=== PATIENT | male | born 1940 | race Caucasian/White ===

== ENCOUNTER → 2024-01-21 12:47 | Outpatient (REF) | payer OTHER, SELFPAY | LOC: DHCBC MAIN 12:47 | PROVIDERS: ATTENDING PHYSICIAN Internal Medicine; FAMILY PHYSICIAN Family Medicine | DX: Z01.810 Encounter for preprocedural cardiovascular examination (principal); R07.9 Chest pain, unspecified | CPT/HCPCS: 93306 ==

== ENCOUNTER → 2024-02-04 07:49 | Outpatient (REF) | payer OTHER, SELFPAY | LOC: DHCBC/DCA 07:49 | PROVIDERS: ATTENDING PHYSICIAN Internal Medicine; FAMILY PHYSICIAN Family Medicine | DX: Z01.810 Encounter for preprocedural cardiovascular examination (principal); R07.9 Chest pain, unspecified | CPT/HCPCS: 78452; 93017; A9500; J2785 ==

== ENCOUNTER 2024-03-21 16:44 | Inpatient (IN) | payer OTHER, SELFPAY ==
[2024-03-21] VITALS (8 sets, daily range): BP systolic 160–183; BP diastolic 79–100; BMI 28.0; BMI 26.2
[2024-03-21 12:07] LABS: % Basophils 0.6 % (0-2); % Eosinophils 1.1 % (0-6); % Immature Granulocytes 0.6 % (0-0.5); % Lymphocytes 9.2 % (20.5-51.1); % Monocytes 7.5 % (1.7-9.3); Absolute Basophils 0.1 10^3/uL (0-0.2); Absolute Eosinophils 0.1 10^3/uL (0-0.7); Absolute Immature Granulocytes 0.1 10^3/uL (0-0.05); Absolute Lymphocytes 0.8 10^3/uL (1.2-3.4); Absolute Monocytes 0.6 10^3/uL (0.1-0.6); Absolute Neutrophils 6.6 10^3/uL (1.4-6.5); Hematocrit 31.5 % (39.0-52.0); Hemoglobin 10.5 g/dL (13.0-18.0); Mean Corp Hgb Conc. 33.3 g/dL (33.0-37.0); Mean Corpuscular Hgb 28.6 pg (27.0-31.0); Mean Corpuscular Volume 85.8 fL (80.0-94.0); Mean Platelet Volume 9.3 fL (7.4-10.4); Nucleated Red Blood Cells % 0 % (-); Platelet Count 278 10^3/uL (130-400); Red Blood Cell Count 3.67 10^6/uL (4.70-6.10); Red Cell Dist. Width 13.9 % (11.5-14.5); White Blood Cell Count 8.1 10^3/uL (4.8-10.8)
[2024-03-21 12:27] LABS: ALT (SGPT) 25 U/L (0-50); AST (SGOT) 29 U/L (17-59); Albumin 3.8 g/dl (3.5-5.0); Alkaline Phosphatase 168 U/L (38-126); Blood Urea Nitrogen 22 mg/dl (9-20); Calcium 9.4 mg/dl (8.4-10.2); Carbon Dioxide 27 mmol/L (22-30); Chloride 104 mmol/L (98-107); Glucose 124 mg/dl (70-99); Sodium 140 mmol/L (135-145); Total Bilirubin 1.6 mg/dl (0.2-1.3); Total Protein 6.5 g/dl (6.3-8.2); eGFR 54.17
[2024-03-21 12:40] LABS: Troponin I 0.019 ng/ml
--- NOTE | 2024-03-21 14:15 | ED.GENMED ---
History of Present Illness
General
Chief Complaint: Chest Pain
Source: patient
Exam Limitations: none
Time Seen by Provider: 03/21/24 14:15
Travel History
Have you had any contact with someone who has COVID-19?: No
Do you have any symptoms of coronavirus? Fever > 100 degrees, chills, cough, shortness of breath, sore throat, loss of taste or smell, muscle aches, or headache?: No
History of Present Illness
History of Present Illness:
83-year-old female complaining of vague chest tightness relatively constant for 2 days. Also some shortness of breath with exertion over the last 2 to 3 days. Shortness of breath worse going up stairs but even going to the bathroom he has some
shortness of breath. Chest tightness has been relatively constant. No pleuritic pain fever cough or other symptoms. Patient does feel his leg swelling which is chronic may be slightly worse
Past History
Past History
ED Past Medical History: Arrthythmia, GERD, HTN, Hypercholesterolemia and NIDDM
ED Past Surgical History: Appendectomy
Social History
Tobacco: Non-smoker
Alcohol: None
Drug: None
Personal:
Living: alone
Employment: Retired
Family History
Family History: Early CAD
Review of Systems
Review of Systems
All Other Systems: Not applicable
Constitutional: Denies fever
Respiratory: Denies cough
Cardiac: Denies syncope
ABD/GI: Reports no symptoms
Phy Exam
Physical Exam
Physical Exam:
GENERAL: Alert and oriented in no apparent distress
EYE: Orbits normal.
NECK: Supple
CARDIAC: Mildly irregular. No murmur
LUNGS: No respiratory distress but a few crackles in the bases
ABDOMEN: Soft, without focal tenderness or distention
NEUROLOGICAL: Alert and oriented , grossly non-focal
SKIN: Warm and dry, no rash or lesion, no discoloration, skin intact.
MUSCULOSKELETAL: Moderate lower extremity pitting edema
PSYCH: Normal and appropriate interaction.
Scores
Heart Score for Chest Pain Patients
STEMI patient?: Not applicable
Course
Orders/Labs/Results
Orders:
Orders
03/21/24 11:35
ECG [Electrocardiogram (*1)] Urgent
Reason for Study: Shortness of Breath
EKG- Treatment ONCE
03/21/24 11:50
Complete Blood Count/With Diff Urgent
Comprehensive Metabolic Panel Urgent
NT-proBNP Urgent
Comment: ADD
Troponin I Urgent
03/21/24 14:28
Add On- LAB Urgent
Tests Added?: probnp
CXR2 [CR Chest - 2 Views ] Urgent
Comment:
Reason For Exam: sob
03/21/24 14:[address] Non Medication Order As Directed
Physician Order: weight please
Above order entered?: Yes
03/21/24 16:00
Furosemide [Lasix] 40 mg IV BID AT 0800,1600
03/21/24 16:03
Case Management Consult ONCE
Case Management Consult: Discharge Planning
Comment: follow-up regarding obtaining Dofetilide (Tikosyn) after discharge
ECG as needed As Directed
ECG as needed for:: Rhythm Change
Notify MD As Directed
Notify physician if: Obtain QTc interval off each 12 lead EKG:
Contact Knitted Cloth Examiner for any of the following QTc values after dose #1:
. Has increased by > 15% compared to baseline (calculated as baseline QTc X 1.15)
OR EITHER
. > 500 msec in patients without ventricular conduction abnormalities (refer to
initiation note)
. > 550 msec in patients with ventricular conduction abnormalities (refer to
initiation note)
Contact Knitted Cloth Examiner after doses #2-5 or on PRN ECG for rhythm change if QTc is EITHER:
. > 500 msec in patients without ventricular conduction abnormalities (refer to
initiation note)
. > 550 msec in patients with ventricular conduction abnormalities (refer to
initiation note)
03/21/24 16:04
Admit/Transfer Patient As Directed
Co-Sign Provider:
Level of Care: Inpatient admission
Assign to:: IVU
Physician / Group: ace dominguez
Diagnosis: CHF
Reason for Hospitalization: chf
Expected length of stay greater than two midnights?: Yes
ELOS- Estimated Length of Stay in days: 3
I certify the patient meets the requirements for IP care: Yes
03/21/24 16:05
Code Status As Directed
Resuscitation Status: Full Code
03/21/24 16:10
Troponin I Routine
03/21/24 18:00
Dofetilide [Tikosyn] 250 mcg PO Q12H
Abnormal Lab Results
03/21/24
11:50
RBC 3.67 L 10^6/uL
(4.70-6.10)
Hgb 10.5 L g/dL
(13.0-18.0)
Hct 31.5 L %
(39.0-52.0)
Abs Immat Gran (auto) 0.1 H 10^3/uL
(0-0.05)
Absolute Neuts (auto) 6.6 H 10^3/uL
(1.4-6.5)
Absolute Lymphs (auto) 0.8 L 10^3/uL
(1.2-3.4)
Immature Gran % 0.6 H %
(0-0.5)
Neutrophils % 81.0 H %
(42.2-75.2)
Lymphocytes % 9.2 L %
(20.5-51.1)
BUN 22 H mg/dl
(9-20)
Glucose 124 H mg/dl
(70-99)
Total Bilirubin 1.6 H mg/dl
(0.2-1.3)
Alkaline Phosphatase 168 H U/L
(38-126)
03/21/24 11:50
03/21/24 11:50
Vital Signs
Initial and Last Documented VS:
Initial Vital Signs
Temp Pulse Resp BP Pulse Ox
97.6 F 78 18 170/87 96
03/21/24 11:38 03/21/24 11:38 03/21/24 11:38 03/21/24 11:38 03/21/24 11:38
Last Documented Vital Signs
Temp Pulse Resp BP Pulse Ox
97.6 F 90 18 182/94 94
03/21/24 11:38 03/21/24 15:27 03/21/24 11:38 03/21/24 15:28 03/21/24 15:29
MDM/Problems Addressed
Differential Diagnosis Includes:
Chest tightness continuous for 2 days. Troponin is stable. In addition some shortness of breath with exertion. There may be component of CHF. Could be an anginal equivalent. Workup in progress
*Pulse Oximetry
Patient hypoxic: no
*EKG
Interpreted by ED Provider?: Yes
Interpretation: abnormal
Comparison EKG: changes noted
Heart Rate: 82
Rate: normal
Rhythm: a-fib
[place]: normal axis
Interval: normal interval
QRS Pattern: left vent hypertrophy
Ischemia: non-specific ST changes
*Critical Care Note
Total Time (30-74mins, 75-104mins- exclusive of procedures): Not Applicable
Data Reviewed
Review of Other/Old Records Reveals: Labs, Records and Testing
ED Attending Note
-
Portions of this chart may have been created with voice recognition software.� Occasional wrong word or��sound alike� substitutions may have occurred due to the inherent limitations of voice recognition software.
Discharge Plan
Departure
Patient Disposition: Admit
Date of Disposition: 03/21/24
Time of Disposition: 15:31
Presentation/result/management discussed w/ accepting MD/DO: Cardiology
Discharge Problem:
CHF, Atrial fibrillation
Prescriptions:
No Action
aspirin 81 MG tablet,delayed release (DR/EC)
81 mg PO DAILY
metoprolol succinate 50 MG tablet extended release 24 hr
50 mg PO HS
lisinopril 20 MG tablet
40 mg PO HS
Hold Instructions: Resume on 08/08/22.
atorvastatin 40 mg Tablet
40 mg PO DAILY
amlodipine 5 mg Tablet
2.5 mg PO HS
repaglinide 0.5 mg Tablet
0.5 mg PO BID
tamsulosin 0.4 mg Capsule
0.4 mg PO HS
pantoprazole 40 MG tablet,delayed release (DR/EC)
40 mg PO DAILY
metformin 1,000 mg Tablet
1,000 mg PO QPM
Eliquis 5 mg Tablet
5 mg PO BID
Referrals:
Krish Kimble MD [Family Provider] -
Interventions
Interventions:
*Risk Screen - Suicide Last Done: 03/21/24 15:40
*General Assessment Last Done: 03/21/24 15:39
*Neglect/Abuse Screening Last Done: 03/21/24 15:40
ED- Fall Risk Assessment Last Done: 03/21/24 15:04
ED- Cardiac Assessment Last Done: 03/21/24 15:04
Discharge Date and Time
Print Language: MOHAWK
--- NOTE | 2024-03-21 14:45 | CON.CAR ---
Addendum entered and electronically signed by Roly Chaves MD 03/21/24 16:30:
I saw and examined the patient.
The MANAGER DATA WAREHOUSE's note was reviewed and I agree with the note.
Comment: Progressive heart failure symptoms over one week. AFib seen at recent stress test and has been on Eliquis for more than a month. Recent echo and stress test favorable.
Will treat for HFpEF and believe the newer AFib is likely adding to symptoms. Later ablation of his AFib can be considered.
Dofetilide, diuresis, cardioversion if needed, add GDMT for HFpEF.
Original Note:
Consultation
Consultation Request
Date/Time Consultation Requested: 03/21/2024 14:30
Date/Time Consultation Performed: 03/21/2024 14:45
Requesting Provider: Dr. Blanton
Performing Provider: LION Lackey for Dr. Chaves
Reason for Consultation: Paroxysmal atrial fibrillation, chest pain
Medical History
-
Chief Complaint: Chest pain, COTTON
History of Present Illness:
Quintin Zepeda is an 83-year-old male (known to Dr. Chaves, his primary financial systems director), with paroxysmal atrial fibrillation (on apixaban), nonocclusive coronary artery disease, melanoma, GERD, hypertension, dyslipidemia, type 2 diabetes mellitus,
chronic kidney disease, and BPH who presented to the emergency department with a chief complaint of shortness of breath. He endorses associated fatigue for approximately 1 week. He also has been having chest heaviness. This has been off and on
for 2 days. This is at rest and exertional. He is experiencing dyspnea on exertion. He has some mild orthopnea. Chest x-ray to be formally read but per my review shows small bilateral pleural effusions. His proBNP is elevated. He has weight
gain and peripheral edema.
He is a little disappointed regarding his inpatient admission as he has a cruise planned for 10 days on [place] ? with his . The cruise was to leave on .
Past Medical History
Past Medical History: Arrhythmias (Paroxysmal atrial fibrillation, NSVT), CAD (Nonobstructive), Cancer (Melanoma), GERD, HTN, Hypercholesterolemia, IDDM, Renal Failure (Chronic kidney disease) and Other (BPH)
Past Surgical History: Appendectomy
Social History
Tobacco: Former Smoker
Drug: None
Personal:
Living: With Family
Employment: Retired
Family History
Family History: Reviewed & Not Pertinent
Allergies / Home Medications
Allergy/AdvReac Type Severity Reaction Status Date / Time
No Known Allergies Allergy Verified 07/10/23 19:42
�Medication �Instructions �Recorded �Confirmed �Type
aspirin 81 mg tablet,delayed 81 mg PO DAILY Blood clot 05/24/11 07/10/23 History
release prevention/tx
lisinopril 20 mg tablet 40 mg PO HS Blood pressure 02/21/19 07/10/23 History
metoprolol succinate 50 mg 50 mg PO HS Blood pressure 02/21/19 07/10/23 History
tablet,extended release 24 hr
amlodipine 5 mg tablet 5 mg PO HS Blood pressure 08/04/22 07/10/23 History
atorvastatin 40 mg tablet 40 mg PO DAILY High cholesterol 08/04/22 07/10/23 History
pantoprazole 40 mg tablet,delayed 40 mg PO DAILY Gastrointestinal 08/04/22 07/10/23 History
release issue
repaglinide 0.5 mg tablet 0.5 mg PO BID Diabetes 08/04/22 07/10/23 History
tamsulosin 0.4 mg capsule 0.4 mg PO HS Urinary issue 08/04/22 07/10/23 History
metformin 1,000 mg tablet 1,000 mg PO BID 07/10/23 07/10/23 History
Review of Systems
-
History Source: Patient
All other systems: Negative unless noted
Respiratory: Trouble Breathing
Cardiac: Chest Pain
Musculoskeletal: Edema
Physical Exam
Vital Signs
Temp Pulse Resp BP Pulse Ox
97.6 F 78 18 170/87 96
0521/24 11:38 03/21/24 11:38 03/21/24 11:38 03/21/24 11:38 03/21/24 11:38
Lab Results
03/21/24 11:50
03/21/24 11:50
Troponin I 0.019 ng/ml 03/21/24 11:50
Physical Exam
General: Well Developed, Well Nourished, No Apparent Distress and Comfortable
HEENT: Normocephalic, Anicteric and Moist Mucous Membranes
Respiratory: Non Labored Respirations and Other (Diminished bilateral posterior bases)
Cardiac: S1/S2, Irregular Rhythm and Peripheral Edema (+1-2 pitting lower extremity edema)
Breast: Deferred by me
GI: Soft, Non Tender, Non Distended and Normal Bowel Sounds
Rectal: Deferred by Provider
Genito-urinary: No Costovertebral Tender
Musculoskeletal: No Clubbing and No Cyanosis
Skin: Warm and Dry
Neuro: AO x 3
Hematologic/Lymphatic: No Lymphadenopathy
Psych: Calm
Impression / Plan
-
HFpEF, acute, severe requiring hospitalization
-Elevated proBNP, lower extremity edema, with COTTON and bilateral pleural effusions on CXR
-Diuresis with furosemide 40 mg IV twice daily
-Case management to [place] SGLT2
-Trend daily weight, I/O, and BMP with diuresis
-Heart failure education
Paroxysmal atrial fibrillation
-Rate controlled
-Oral Anticoagulation: On apixaban 5 mg twice daily for > 4 weeks
-[id number]: Score at least 5 (HTN, age 75 or more, Diabetes Mellitus, Vascular disease)
-Plan to restore sinus rhythm this hospitalization, initiate dofetilide 250 mcg every 12 hours, this requires intensive monitoring of QT
Chest pain
-Recent nuclear stress testing reassuring
-Trend troponin
Coronary artery disease, nonobstructive
-Circumflex 40% proximal stenosis, RCA 30-40% mid stenosis
-Increased dose of atorvastatin for LDL of 80
Hypertension, follow BP with changes in medical therapy
NSVT, continue beta-heike
Mixed hyperlipidemia, on atorvastatin
GERD
Chronic kidney disease, creatinine 1.27 (12/2023)
Type 2 diabetes mellitus, most recent HgbA1c 7.2% (12/2023)
Former smoker, continued cessation recommended
Data Reviewed
-
EKG: Report Reviewed by me (Atrial fibrillation, LVH, rate 82)
Medical Tests (Nuc Med, Echo etc): Report Reviewed by me (Prior stress test, echocardiogram, and cardiac catheterization as above)
Labs: Labs Reviewed by me
Old Records: Reviewed
[2024-03-21 15:01] LABS: NT-proBNP 2620 pg/ml
[2024-03-21] MEDS: LASIX 40 MG IV (15:27)
--- NOTE | 2024-03-21 15:28 | W.CARD.TIKOS ---
Initiate Tikosyn
-
I verify that the patient has not taken any verapamil (Isoptin/Calan), ketoconazole (Nizoral), cimetidine (Tagamet), trimethoprim (Trimpex), trimethoprim/sulfamethoxazole (Bactrim), megesterol (Megace), prochlorperazine (Compazine),
hydrochlorothiazide (HCTZ), dolutegravir (Tivicay) or any Class I or Class III anti-arrhythmic within the last three days
AND
I verify that the patient has not taken amiodarone within the last THREE months, or that the patient's amiodarone plasma concentration is <0.3 mcg/mL.
Creatinine 1.3 mg/dL (0.7-1.3) 03/21/24 11:50
I have assessed the baseline QTc interval (using QT for heart rate less than 60 bpm) and deemed the patient is appropriate for Dofetilide therapy. I understand that Tikosyn is contraindicated if the QTc is >440msec (500msec in patients with
ventricular conduction abnormalities).
Baseline QTc (in msec): 420
Ordering Physician: Roly Chaves
--- NOTE | 2024-03-21 15:42 | HPS.HSE ---
Family Physician
-
Family Physician: Krish Kimble
Chief Complaint
-
Short of breath, chest tightness
History of Present Illness
83-year-old with past medical history for GERD, hypertension, hyperlipidemia, diabetes, A-fib presented to us with short of breath which is worse with activity, midsternum chest heaviness for past 2 days. As per , patient was sleeping more than
usual. Patient stated worsening of bilateral lower extremities edema. Weight gain of 10 pounds in 1 month. Patient also complaining of lower abdominal cramps. Denies any nausea vomiting diarrhea or constipation. Patient complained of dizziness.
Denied headache or syncopal episode. Patient denied fever, chills, runny nose, congestion, cough. Patient denied dysuria or hematuria.
BMP 2620. Chest x-ray with mild cardiomegaly, small bilateral pleural effusion, mild pulmonary vascular congestion. Patient received a dose of Lasix in ER. Admitted for further management
Medical History
Past Medical History
Past Medical History: Reports Other
Additional Past Medical History:
Type 2 diabetes
Iron deficiency anemia
Ventricular tachycardia
Coronary artery disease
GERD
Esophagitis
Hypertension
Gout
Melanoma
Hyperlipidemia
BPH
Chronic kidney disease
Past Surgical History: Reports Other
Additional Past Surgical History:
Wide area melanoma resection
Appendectomy
Social History
Tobacco: Non-smoker
Alcohol: None
Drug: None
Personal:
Living: With Family
Family History
Family History: Not pertinent
Allergies / Home Medications
Allergies reflects when Allergies were last updated in [facility].
Home Medications with original date entered in [facility]
Allergy/Medication List:
Allergies
Allergy/AdvReac Type Severity Reaction Status Date / Time
No Known Allergies Allergy Verified 07/10/23 19:42
Home Medications
aspirin 81 mg tablet,delayed release 81 mg PO DAILY Blood clot prevention/tx 05/24/11
lisinopril 20 mg tablet 40 mg PO HS Blood pressure 02/21/19
metoprolol succinate 50 mg tablet,extended release 24 hr 50 mg PO HS Blood pressure 02/21/19
amlodipine 5 mg tablet 2.5 mg PO HS Blood pressure 08/04/22
atorvastatin 40 mg tablet 40 mg PO DAILY High cholesterol 08/04/22
pantoprazole 40 mg tablet,delayed release 40 mg PO DAILY Gastrointestinal issue 08/04/22
repaglinide 0.5 mg tablet 0.5 mg PO BID Diabetes 08/04/22
tamsulosin 0.4 mg capsule 0.4 mg PO HS Urinary issue 08/04/22
metformin 1,000 mg tablet 1,000 mg PO QPM 07/10/23
apixaban 5 mg tablet (Eliquis) 5 mg PO BID 03/21/24
Review of Systems
-
Constitutional: Reports Weight Gain and Fatigue
EENT: Reports No Symptoms
Respiratory: Reports Trouble Breathing
Cardiac: Reports Chest Pain
Abdomen/GI: Reports Abdominal Pain
: Reports No Symptoms
Musculoskeletal: Reports No Symptoms
Skin: Reports No Symptoms
Neurological: Reports Dizzy
Endocrine: Reports No Symptoms
Hematologic/Lymphatic: Reports No Symptoms
Psych: Reports No Symptoms
Physical Exam
Vital Signs
Vital Signs
Temp Pulse Resp BP Pulse Ox
97.6 F 90 18 182/94 96
03/21/24 11:38 03/21/24 15:27 03/21/24 11:38 03/21/24 15:27 03/21/24 11:38
Physical Exam
General: Well Developed, Well Nourished and No Apparent Distress
HEENT: NormoCephalic, Moist mucous membranes and Atraumatic
Respiratory: Crackles
Cardiac: S1/S2 and Regular Rhythm; No Murmur or Rub
GI: Soft, Non Tender, Non Distended and Normal Bowel Sounds; No Organomegaly
Rectal: Deferred by Provider
Musculoskeletal: No Clubbing, No Cyanosis and Other (Bilateral lower extremities edema)
Skin: No Rash
Neuro: AO x 3 and Nonfocal/grossly intact
Psych: Calm
Laboratory Results
-
03/21/24 11:50
03/21/24 11:50
Laboratory Results
Total Bilirubin 1.6 mg/dl (0.2-1.3) H 03/21/24 11:50
AST 29 U/L (17-59) 03/21/24 11:50
ALT 25 U/L (0-50) 03/21/24 11:50
Alkaline Phosphatase 168 U/L (38-126) H 03/21/24 11:50
Troponin I 0.019 ng/ml 03/21/24 11:50
Impression/Plan
-
# Short of breath/lower extremities edema/weight gain likely new onset congestive heart failure
-BNP 2620
-Chest x-ray with mild cardiomegaly, mild pulmonary vascular congestion, small bilateral effusions
-Continue to trend troponin
-Lasix 40 Mg IV twice a day
-Strict HEATHER
-Daily weight
-Cardiology consult
# Paroxysmal atrial fibrillation
-EKG with A-fib
-Eliquis continued
-Metoprolol continued
-Tikosyn added by cardiology
#lower abdominal cramps
-at present no pain
-ctm
# Anemia of chronic disease
-Hemoglobin stable at 10.5
-No active bleeding
-Continue to monitor
Essential hypertension
-Continue amlodipine
-Hold lisinopril
Coronary artery disease
-Continue aspirin, metoprolol
Essential hypertension
-Continue amlodipine
Hypercholesterolemia
-Continue statin
Type 2 diabetes
-Hold metformin
-Hold repaglinide
-Insulin sliding scale
-Carb controlled diet
GERD
-Continue pantoprazole
# History of BPH
-Tamsulosin
Full code
DVT prophylaxis
-Eliquis
--- NOTE | 2024-03-21 16:20 | W.PN.UPDATE ---
Update Note
Progress Note Update
This is an addendum to H&P written by MOTOR GRADER OPERATOR Rosa Meyers.
I saw and examined the patient.
The MOTOR GRADER OPERATOR's note was reviewed and I agree with the note.
Comment:
Mr. Quintin Maldonado is a 83 yo man with hx paroxysmal afib, GERD, HTN, HLD, DM 2, CKD, BPH who presents to the ER with shortness of breath worse on exertion. Triage vitals significant for hypertension. Labs without leukocytosis, normal renal
function. BNP 2620; Trop 0.019. He is hypervolemic on exam with elevated JVP and LE swelling. Lungs clear. abdomen mildly distended.
Patient will be admitted for treatment of heart failure, new diagnosis. IV lasix initiated. Per cardiology, plan to iniatie Tikosyn
[2024-03-21 16:39] LABS: Troponin I 0.021 ng/ml
--- NOTE | 2024-03-21 19:17 | EDRN ---
Spoke w/ IVU RN regarding ordered Tikosyn. Medication to be given when pt. gets to IVU.
[2024-03-21] MEDS: ELIQUIS 5 MG PO (19:20)
[2024-03-21] MEDS: TIKOSYN 250 MCG PO (20:45)
[2024-03-21] MEDS: NOVOLOG FLEXPEN-LOW RESISTANCE SC (21:47)
[2024-03-21] MEDS: ZESTRIL 40 MG PO (22:46)
[2024-03-21] MEDS: TOPROL XL 50 MG PO (22:47)
[2024-03-21] MEDS: FLOMAX 0.400000000000000022 MG PO (22:47)
[2024-03-21] MEDS: NORVASC 2.5 MG PO (22:47)
--- NOTE | 2024-03-21 23:33 | PTCARENOTE ---
Pt rec'd from ED on stretcher awake,alert oriented. Adm hx taken and recorded. !st dose of Tikosyn started at 5. 2 hr post QTc 513.
Afib on telemetry with freq pvc's. Lungs clear diminished, minimal sob noted with exertion. Pt voiding in urinal for accurate I@O.
[2024-03-22] VITALS (10 sets, daily range): BP systolic 133–183; BP diastolic 63–92; PULSE 80; O2SAT 94; BMI 25.5
[2024-03-22 04:48] LABS: Hematocrit 33.2 % (39.0-52.0); Hemoglobin 11.2 g/dL (13.0-18.0); Mean Corp Hgb Conc. 33.7 g/dL (33.0-37.0); Mean Corpuscular Hgb 29.1 pg (27.0-31.0); Mean Corpuscular Volume 86.2 fL (80.0-94.0); Mean Platelet Volume 9.4 fL (7.4-10.4); Platelet Count 264 10^3/uL (130-400); Red Blood Cell Count 3.85 10^6/uL (4.70-6.10); Red Cell Dist. Width 13.7 % (11.5-14.5); White Blood Cell Count 8.9 10^3/uL (4.8-10.8)
[2024-03-22 05:19] LABS: ALT (SGPT) 23 U/L (0-50); AST (SGOT) 29 U/L (17-59); Albumin 3.6 g/dl (3.5-5.0); Alkaline Phosphatase 189 U/L (38-126); Blood Urea Nitrogen 21 mg/dl (9-20); Calcium 9.4 mg/dl (8.4-10.2); Carbon Dioxide 28 mmol/L (22-30); Chloride 103 mmol/L (98-107); Direct Bilirubin 0.2 mg/dl (0.0-0.4); Estimated Creatinine Clearance 51 ml/min; Glucose 106 mg/dl (70-99); HDL Cholesterol 43 mg/dl; LDL Cholesterol, Calculated 79 mg/dl; Magnesium 1.4 mg/dl (1.6-2.3); Potassium 3.6 mmol/L (3.5-5.1); Sodium 140 mmol/L (135-145); Total Bilirubin 1.9 mg/dl (0.2-1.3); Total Cholesterol 145 mg/dl (50-199); Total Protein 6.3 g/dl (6.3-8.2); Triglyceride 117 mg/dl (10-149); Very Low Density Lipoprotein 23 mg/dl (0-30); eGFR 54.17
[2024-03-22 05:47] LABS: TSH Reflex To Free T4 2.44 uIU/ml (0.47-4.68)
[2024-03-22 06:52] LABS: Glucose - Point of Care 104 mg/dl (70-99)
[2024-03-22] MEDS: ELIQUIS 5 MG PO ×2 (08:28→19:33)
[2024-03-22] MEDS: PROTONIX 40 MG PO (08:28)
[2024-03-22] MEDS: NOVOLOG FLEXPEN-LOW RESISTANCE SC ×2 (08:28→18:21)
[2024-03-22] MEDS: LIPITOR 40 MG PO (08:28)
[2024-03-22] MEDS: ASPIR LOW (ENTERIC COATED) 81 MG PO (08:28)
[2024-03-22] MEDS: MAGNESIUM SULFATE 100 IV (08:29)
[2024-03-22] MEDS: LASIX 40 MG IV ×2 (08:30→16:00)
--- NOTE | 2024-03-22 08:34 | W.PN.HOSP.TC ---
Today's Communication/Plan
-
Tikosyn loading
Assessment / Plan
Assessment / Plan
pt is an 83 year old male
Shortness of breath/lower extremities edema/weight gain likely new onset congestive heart failure (likely diastolic as ECHO done 12/2023 with preserved EF)--apprec cards--troponin neg x 2--BNP 2620--Lasix 40 Mg IV twice a day--Strict I/O--Daily weight
Paroxysmal atrial fibrillation--EKG with A-fib--Eliquis continued--Metoprolol continued--Tikosyn loading added by cardiology
Anemia of chronic disease--Hemoglobin stable at 10.5--No active bleeding--Continue to monitor
Essential hypertension--Continue amlodipine--Hold lisinopril
Coronary artery disease--Continue aspirin, metoprolol
Essential hypertension--Continue amlodipine
Hypercholesterolemia--Continue statin
Type 2 diabetes--Hold metformin--Hold repaglinide--Insulin sliding scale--Carb controlled diet
GERD--Continue pantoprazole
History of BPH--Tamsulosin
Code status --Full code
DVT prophylaxis--Eliquis
Anticipated Discharge: > 48 hours
Subjective/Interval History
-
Date of Service: March 22, 2024
pt waiting for his Tykosyn load
Objective Data
-
Labs:
Laboratory Results
03/22/24
04:37
WBC 8.9
Hgb 11.2 L
Hct 33.2 L
Plt Count 264
Sodium 140
Potassium 3.6
Chloride 103
Carbon Dioxide 28
BUN 21 H
Creatinine 1.3
Glucose 106 H
Calcium 9.4
Total Bilirubin 1.9 H
AST 29
ALT 23
Alkaline Phosphatase 189 H
Vital Signs:
max temp for 24 hours
03/22/24
06:49
Temp 98.5 F
Vital Signs
Temp Pulse Resp BP Pulse Ox
98.5 F 86 16 154/80 95
03/22/24 06:49 03/22/24 08:15 03/22/24 06:49 03/22/24 06:50 03/22/24 08:23
I&O
03/21/24 03/22/24 03/23/24
06:59 06:59 06:59
Intake Total 240 / 240 300 / 300
Output Total 1675 / 1675 150 / 150
Balance -1435 / -1435 150 / 150
Review of Systems
-
All other systems: Reviewed and negative
Physical Exam
-
General: Well Developed, Well Nourished and No Apparent Distress
HEENT: Normocephalic and Atraumatic; Negative Oxygen
Respiratory: Clear to Auscultation; Negative Wheezes, Rales, Rhonchi or Crackles
Cardiac: Irregular Rhythm
GI: Soft, Nontender, Nondistended and Normal Bowel Sounds
Musculoskeletal: No Clubbing, No Cyanosis and No Edema
Neuro: Awake and Alert
Psych: Calm
--- NOTE | 2024-03-22 09:35 | W.PN.CD ---
Addendum entered and electronically signed by Duane Ortiz MD 03/22/24 10:35:
I saw and examined the patient.
The CURRICULUM AND INSTRUCTION SPECIALIST's note was reviewed and I agree with the note.
Comment: he is feeling much better. He is rrr jvp with large v wave, clear to auscultation b/l no edema. he is back in sinus rhythm. great response to diuresis, continue with another day iv diuresis then transition to po. Continue dofetilide load.
Original Note:
Today's Communication / Plan
-
-continue IV Lasix and monitor volume and labs
-electrolytes replaced - monitor
-continue dofetilide with close monitoring per protocol
Impression / Plan
-
HFpEF, acute: improved
-weight down and breathing and edema better, still with rales to bases to assessment.
-Diuresis with furosemide 40 mg IV twice daily- requires intensive monitoring
-Case management to [facility] SGLT2
-Trend daily weight, I/O, and BMP with diuresis
-Heart failure education
-low mag, borderline potassium- both replaced this AM- monitor
Paroxysmal atrial fibrillation:
-now back in SR- continue dofetilide initiation, which requires intensive monitoring. QTC is 465 MS (manually) in SR to my assessment this AM- acceptable- continue to monitor.
-continue Eliquis
Chest pain
-Recent nuclear stress testing reassuring
-Trend unremarkable
Coronary artery disease, nonobstructive
-Circumflex 40% proximal stenosis, RCA 30-40% mid stenosis
-Increased dose of atorvastatin for LDL of 80
Hypertension, follow BP with changes in medical therapy
NSVT, continue beta-heike
Mixed hyperlipidemia, on atorvastatin
GERD
Chronic kidney disease, creatinine 1.27 (12/2023)
Type 2 diabetes mellitus, most recent HgbA1c 7.2% (12/2023)
Former smoker, continued cessation recommended
Subjective:
He is feeling improved, breathing better
Physical Exam
Vital Signs/Labs
Vital Signs
Temp Pulse Resp BP Pulse Ox
98.5 F 86 16 154/80 95
03/22/24 06:49 03/22/24 08:15 03/22/24 06:49 03/22/24 06:50 03/22/24 08:23
03/21/24 03/22/24 03/23/24
06:59 06:59 06:59
Actual Weight 92.5 kg
03/22/24 04:37
03/22/24 04:37
Magnesium 1.4 mg/dl (1.6-2.3) L 03/22/24 04:37
Triglycerides 117 mg/dl (10-149) 03/22/24 04:37
LDL Cholesterol, Calc 79 mg/dl 03/22/24 04:37
VLDL Cholesterol, Calc 23 mg/dl (0-30) 03/22/24 04:37
HDL Cholesterol 43 mg/dl 03/22/24 04:37
03/21/24
11:50
Zdq-[id number]-Puunscwqvvm Pept 2620
LAB Results
03/21/24 03/21/24
11:50 16:10
Troponin I 0.019 0.021
Physical Exam
Constitutional: No acute distress
EENT: Anicteric
Cardiovascular: Rhythm & rate is regular
Respiratory: Respiratory effort normal and Crackles Present (bases)
GI: Soft
Neuro/Psych: AO x 3
Other: Skin (warm and dry)
Data Reviewed
-
Date of Service: March 22, 2024
EKG: Tracing Personally Visualized and interpreted (SR with PVC, LAD- QTC 465 ms manual) and Other (SR with occ PVC's- tele)
Labs: Labs Reviewed by me
[2024-03-22 09:36] LABS: Glycohemoglobin (HgbA1c) 7.1 % (4.0-5.6)
[2024-03-22] MEDS: KCL 40 MEQ PO (09:42)
[2024-03-22] MEDS: TIKOSYN 250 MCG PO (09:44)
[2024-03-22 11:17] LABS: Glucose - Point of Care 208 mg/dl (70-99)
--- NOTE | 2024-03-22 12:09 | W.PN.UPDATE ---
Update Note
Progress Note Update
QTC is >500 ms. We have to stop dofetilide. BP's running high, increase amlodipine.
--- NOTE | 2024-03-22 13:14 | CM ---
Reviewed chart. Met with Mr. Maldonado to review discharge plans. He states prior to admission he resides with his significant other in a one story home with one step to enter. He states prior to admission he was independent with ambulation and
adls. He states he does not have any DME in the home. He states he has a prescription plan and uses [facility]. We reviewed [facility] and at this time he is declining [facility]. Medical work-up progress. The discharge plan is to
return home with his significant other when medically stable.
[2024-03-22] MEDS: NOVOLOG FLEXPEN-LOW RESISTANCE 2 UNITS SC (13:44)
[2024-03-22 17:06] LABS: Glucose - Point of Care 145 mg/dl (70-99)
[2024-03-22] MEDS: NORVASC 5 MG PO (18:22)
--- NOTE | 2024-03-22 19:27 | PTCARENOTE ---
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 Pt converted to sinus rhythm prior to second dose of Tikosyn but QTc 522ms post tikosyn dose. Tikosyn stopped per Viktoria Baugh,
LEATHER DRESSER. Telemetry shows sinus rhythm with first degree AV block adn frequent PVC's. Potassium and magnesium repleted today.
--- NOTE | 2024-03-22 21:06 | PTCARENOTE ---
Pt received at start of shift, HR SR w/ 1st dg HB and PVCs. Pt in bed. Reinforced watching fluid intake, daily weight, and Na restricted diet with pt. Pt states understanding. Pt denies any CP, SOB, or lightheadedness/dizziness. Pt does c/o slight
tightness in chest that was present on admission - pt states it feels better than when first arriving. Informed pt to notify RN if any changes, call pena within reach.
[2024-03-22 21:44] LABS: Glucose - Point of Care 170 mg/dl (70-99)
[2024-03-22] MEDS: ZESTRIL 40 MG PO (22:32)
[2024-03-22] MEDS: TOPROL XL 50 MG PO (22:32)
[2024-03-22] MEDS: FLOMAX 0.400000000000000022 MG PO (22:32)
[2024-03-23 03:30] VITALS: BP 138/77
[2024-03-23 04:10] LABS: Hematocrit 32.4 % (39.0-52.0); Hemoglobin 11.2 g/dL (13.0-18.0); Mean Corp Hgb Conc. 34.6 g/dL (33.0-37.0); Mean Corpuscular Hgb 28.6 pg (27.0-31.0); Mean Corpuscular Volume 82.9 fL (80.0-94.0); Mean Platelet Volume 9.5 fL (7.4-10.4); Platelet Count 281 10^3/uL (130-400); Red Blood Cell Count 3.91 10^6/uL (4.70-6.10); Red Cell Dist. Width 13.5 % (11.5-14.5); White Blood Cell Count 10.8 10^3/uL (4.8-10.8)
[2024-03-23 04:15] VITALS: BMI 24.9
[2024-03-23 04:34] LABS: Blood Urea Nitrogen 26 mg/dl (9-20); Calcium 9.3 mg/dl (8.4-10.2); Carbon Dioxide 29 mmol/L (22-30); Chloride 99 mmol/L (98-107); Estimated Creatinine Clearance 47 ml/min; Glucose 135 mg/dl (70-99); Potassium 3.8 mmol/L (3.5-5.1); Sodium 137 mmol/L (135-145); eGFR 49.56
[2024-03-23 07:08] VITALS: BP 158/73
[2024-03-23 07:11] LABS: Glucose - Point of Care 131 mg/dl (70-99)
--- NOTE | 2024-03-23 08:09 | W.PN.CD ---
Today's Communication / Plan
-
- Now in sinus rhythm
- Failed Tikosyn due to QTc prolongation
- Stable for discharge on Toprol
Impression / Plan
-
HFpEF, acute: improved
-weight down and breathing and edema better, still with rales to bases to assessment.
-Diuresis with furosemide 40 mg IV twice daily- requires intensive monitoring
-Case management to [facility] SGLT2
-Trend daily weight, I/O, and BMP with diuresis
-Heart failure education
-low mag, borderline potassium- both replaced this AM- monitor
Paroxysmal atrial fibrillation:
-now back in SR
-Tikosyn caused prolonged QTc and is discontinued yesterday.
-Tikosyn washout before addition of any other AAD medications
-Can try Amiodarone otherwise plan for AF ablation
-continue Eliquis
-Wants to discuss the next management plans with Dr. Chaves.
-Discharge home on Metoprolol 50 mg qhs
Chest pain
-Recent nuclear stress testing reassuring
-Trend unremarkable
Coronary artery disease, nonobstructive
-Circumflex 40% proximal stenosis, RCA 30-40% mid stenosis
-Increased dose of atorvastatin for LDL of 80
Hypertension, follow BP with changes in medical therapy
NSVT, continue beta-heike
Mixed hyperlipidemia, on atorvastatin
GERD
Chronic kidney disease, creatinine 1.27 (12/2023)
Type 2 diabetes mellitus, most recent HgbA1c 7.2% (12/2023)
Former smoker, continued cessation recommended
Subjective:
He is feeling improved, breathing better
Physical Exam
Vital Signs/Labs
Vital Signs
Temp Pulse Resp BP Pulse Ox
99 F 91 20 158/73 93
03/23/24 07:07 03/23/24 07:30 03/23/24 07:07 03/23/24 07:08 03/23/24 07:08
03/22/24 03/23/24 03/24/24
06:59 06:59 06:59
Actual Weight 92.5 kg 90.4 kg
03/23/24 03:36
03/23/24 03:36
Magnesium 2.0 mg/dl (1.6-2.3) 03/23/24 03:36
Triglycerides 117 mg/dl (10-149) 03/22/24 04:37
LDL Cholesterol, Calc 79 mg/dl 03/22/24 04:37
VLDL Cholesterol, Calc 23 mg/dl (0-30) 03/22/24 04:37
HDL Cholesterol 43 mg/dl 03/22/24 04:37
03/21/24
11:50
Srw-V-Xwjmakkjyil Pept 2620
LAB Results
03/21/24 03/21/24
11:50 16:10
Troponin I 0.019 0.021
Physical Exam
Constitutional: No acute distress and Comfortable
EENT: Anicteric and Moist mucous membranes
Cardiovascular: Rhythm & rate is regular, Pedal edema is absent and Systolic murmur present
Respiratory: Respiratory effort normal, Lungs clear to auscul. and Rhonchi Absent
GI: Soft and Normal bowel sounds
Neuro/Psych: Alert, Oriented, AO x 3 and Other (hard of hearing)
Data Reviewed
-
Date of Service: March 23, 2024
Medical Decision Making: Reviewed Test Results, Independent Historian Assessment and Test Interpretation
EKG: Tracing Personally Visualized and interpreted
Echo: Report Reviewed by me
Labs: Labs Reviewed by me
Old Records: Reviewed
[2024-03-23] MEDS: NOVOLOG FLEXPEN-LOW RESISTANCE SC ×2 (09:03→12:25)
[2024-03-23] MEDS: ELIQUIS 5 MG PO ×2 (09:03→20:02)
[2024-03-23] MEDS: ASPIR LOW (ENTERIC COATED) 81 MG PO (09:03)
[2024-03-23] MEDS: PROTONIX 40 MG PO (09:03)
[2024-03-23] MEDS: LIPITOR 40 MG PO (09:03)
[2024-03-23] MEDS: LASIX 40 MG IV ×2 (09:04→17:24)
--- NOTE | 2024-03-23 09:55 | W.PN.HOSP.TC ---
Today's Communication/Plan
-
pt seems to think he is going home today
waiting for confirmation from cards
Assessment / Plan
Assessment / Plan
pt is an 83 year old male
Shortness of breath/lower extremities edema/weight gain -- likely new onset congestive heart failure (likely diastolic as ECHO done 12/2023 with preserved EF)--apprec cards--troponin neg x 2--BNP 2620--Lasix 40 Mg IV twice a day--Strict I/O--Daily
weight, weights down since admission (101.7 kg to 90.4 kg)
Paroxysmal atrial fibrillation--EKG with A-fib--Eliquis continued--Metoprolol continued--Tikosyn loading added by cardiology stopped due to long QT--now talking ablation as outpt?--await cards input
Anemia of chronic disease--Hemoglobin stable at 10.5--No active bleeding--Continue to monitor
Essential hypertension--Continue amlodipine--Hold lisinopril
Coronary artery disease--Continue aspirin, metoprolol
Essential hypertension--Continue amlodipine
Hypercholesterolemia--Continue statin
Type 2 diabetes--Hold metformin--Hold repaglinide--Insulin sliding scale--Carb controlled diet
GERD--Continue pantoprazole
History of BPH--Tamsulosin
Code status --Full code
DVT prophylaxis--Eliquis
Anticipated Discharge: 24 - 48 hours
Subjective/Interval History
-
Date of Service: March 23, 2024
pt had to stop Tikosyn load due to long QT
Objective Data
-
Labs:
Laboratory Results
03/23/24
03:36
WBC 10.8
Hgb 11.2 L
Hct 32.4 L
Plt Count 281
Sodium 137
Potassium 3.8
Chloride 99
Carbon Dioxide 29
BUN 26 H
Creatinine 1.4 H
Glucose 135 H
Calcium 9.3
Vital Signs:
max temp for 24 hours
03/23/24
07:07
Temp 99 F
Vital Signs
Temp Pulse Resp BP Pulse Ox
99 F 91 20 158/73 93
03/23/24 07:07 03/23/24 07:30 03/23/24 07:07 03/23/24 07:08 03/23/24 08:57
I&O
03/22/24 03/23/24 03/24/24
06:59 06:59 06:59
Intake Total 240 / 240 1060 / 1060
Output Total 1675 / 1675 3750 / 3750
Balance -1435 / -1435 -2690 / -2690
Review of Systems
-
All other systems: Reviewed and negative
Physical Exam
-
General: Well Developed, Well Nourished and No Apparent Distress
HEENT: Normocephalic, Atraumatic and Hearing Impaired (very hard of hearing); Negative Oxygen
Respiratory: Clear to Auscultation; Negative Wheezes or Rhonchi
Cardiac: Irregular Rhythm
GI: Soft, Nontender, Nondistended and Normal Bowel Sounds
Musculoskeletal: No Clubbing, No Cyanosis and No Edema
Skin: Warm
Neuro: Awake and Alert
--- NOTE | 2024-03-23 10:38 | CHAP ---
Father Steven Augustin of [facility] [place] in [place] anointed Quintin and gave him Holy Communion.
[2024-03-23 11:22] VITALS: BP 141/79
[2024-03-23 12:20] LABS: Glucose - Point of Care 140 mg/dl (70-99)
--- NOTE | 2024-03-23 12:48 | PN.CDI ---
CDI
- -
CDI:
Physician Documentation Request
Admit Date: 03/21/24 16:44
Dear Doctor Kavita,
Patient admitted with acute HFpEF.
H&P and cardio notes history of CKD.
eGFR results:
Laboratory Tests
03/21/24 03/22/24 03/23/24
11:50 04:37 03:36
eGFR 54.17 54.17 49.56
Please clarify the patients stage of CKD:
Stages of Chronic Kidney Disease*
Level Description GFR
G1 Normal or High >90
G2 Mildly decreased 60-89
G3a Mildly to moderately decreased 45-59
G3b Moderately to severely decreased 30-44
G4 Severely decreased 15-29
G5 Kidney failure <15
Use of terms such as suspected, likely, concern for, or probable (associated with a specific diagnosis that is being evaluated, monitored, or treated as if it exists) are acceptable and can be coded in the inpatient setting, when documented at the
time of discharge.
Thank you,
Jackie Berumen RN, BSN
CDI Specialist
tiger text
Please use your independent medical judgment in providing your response.
*Source: Kidney Disease: Improving Global Outcomes (KDIGO) 2012
--- NOTE | 2024-03-23 12:51 | PN.CDI ---
CDI
- -
CDI:
Physician Documentation Request
Admit Date: 03/21/24 16:44
Dear Doctor Kavita,
The diagnosis of Atrial flutter was included in the signed EKG 03/21 2245
Please indicate in your progress notes if you are in agreement that the above diagnosis is valid for this patient:
____ - Atrial flutter is a valid diagnosis (Please include it in your progress notes)
____ - Atrial flutter is not a valid diagnosis for this patient
____ - Other
Use of terms such as suspected, likely, concern for, or probable are acceptable for a diagnosis that is being evaluated, monitored or treated as if it exists and can be coded in the inpatient setting, when documented at the time of discharge.
Thank you,
Jackie Berumen RN, BSN
CDI Specialist
tiger text
Please use your independent medical judgment in providing your response.
[2024-03-23 16:04] VITALS: BP 150/89
[2024-03-23 17:10] LABS: Glucose - Point of Care 221 mg/dl (70-99)
[2024-03-23] MEDS: NORVASC 5 MG PO (17:24)
[2024-03-23] MEDS: NOVOLOG FLEXPEN-LOW RESISTANCE 2 UNITS SC (17:26)
[2024-03-23 18:26] VITALS: BP 133/73
--- NOTE | 2024-03-23 18:29 | PTCARENOTE ---
Pt continues to diurese well with IV lasix. Telemetry shows sinus rhythm with first degree AV block with occasional PVC's and some runs of atrial fib up to 150 which resolve.
[2024-03-23 21:28] LABS: Glucose - Point of Care 145 mg/dl (70-99)
[2024-03-23 22:19] VITALS: BP 129/76
[2024-03-23] MEDS: TOPROL XL 50 MG PO (22:20)
[2024-03-23] MEDS: FLOMAX 0.400000000000000022 MG PO (22:20)
[2024-03-23] MEDS: ZESTRIL 40 MG PO (22:20)
--- NOTE | 2024-03-23 23:30 | PTCARENOTE ---
Pt rec'd at change of shift with family at bedside. Pt with no c/o pain or sob. Afib with occ pvc's noted on telemetry. By HS pt in sinus rhythm with freq pac's and occ pvc's noted.
Fluid restriction reviewed with pt. pt's own compression socks removed at hs. No peripheral edema noted, good pedal pulses.
[2024-03-24 03:44] VITALS: BP 135/83
[2024-03-24 03:49] VITALS: BMI 24.4
--- NOTE | 2024-03-24 04:07 | PTCARENOTE ---
Pt awoken to void. VS and wt obtained. Pt down several pounds. Voiding well throughout the night. This morning pt c/o flare up of his gout left ankle-foot requesting Indocin. House INTEGRATION SOLUTION ARCHITECT made aware
[2024-03-24 04:49] LABS: Hematocrit 34.3 % (39.0-52.0); Hemoglobin 11.6 g/dL (13.0-18.0); Mean Corp Hgb Conc. 33.8 g/dL (33.0-37.0); Mean Corpuscular Hgb 28.8 pg (27.0-31.0); Mean Corpuscular Volume 85.1 fL (80.0-94.0); Mean Platelet Volume 9.6 fL (7.4-10.4); Platelet Count 273 10^3/uL (130-400); Red Blood Cell Count 4.03 10^6/uL (4.70-6.10); Red Cell Dist. Width 13.4 % (11.5-14.5); White Blood Cell Count 11.6 10^3/uL (4.8-10.8)
[2024-03-24 05:12] LABS: Blood Urea Nitrogen 30 mg/dl (9-20); Carbon Dioxide 29 mmol/L (22-30); Chloride 97 mmol/L (98-107); Estimated Creatinine Clearance 44 ml/min; Glucose 135 mg/dl (70-99); Potassium 3.6 mmol/L (3.5-5.1); Sodium 136 mmol/L (135-145); eGFR 45.62
[2024-03-24] MEDS: INDOCIN 25 MG PO (05:42)
[2024-03-24 08:03] VITALS: BP 137/74
[2024-03-24 08:04] LABS: Glucose - Point of Care 147 mg/dl (70-99)
--- NOTE | 2024-03-24 08:40 | W.PN.HOSP.TC ---
Today's Communication/Plan
-
d/c
Assessment / Plan
Assessment / Plan
pt is an 83 year old male
Shortness of breath/lower extremities edema/weight gain -- likely new onset congestive heart failure (likely diastolic as ECHO done 12/2023 with preserved EF)--apprec cards--troponin neg x 2--BNP 2620--Lasix 40 Mg IV twice a day to 40 mg PO daily at
d/c--Strict I/O--Daily weight, weights down since admission (101.7 kg to 88.6 kg)--CM to [facility] Jardiance/Farxiga as outpt
Paroxysmal atrial fibrillation--EKG with A-fib--Eliquis continued--Metoprolol continued--Tikosyn loading added by cardiology stopped due to long QT--apprec cards input
CKD stage 3a -- noted
Anemia of chronic disease--Hemoglobin stable at 10.5--No active bleeding--Continue to monitor
Essential hypertension--Continue amlodipine--Hold lisinopril
Coronary artery disease--Continue aspirin, metoprolol
Essential hypertension--Continue amlodipine
Hypercholesterolemia--Continue statin
Type 2 diabetes--Hold metformin--Hold repaglinide--Insulin sliding scale--Carb controlled diet
GERD--Continue pantoprazole
History of BPH--Tamsulosin
Code status --Full code
DVT prophylaxis--Eliquis
Anticipated Discharge: Today
Subjective/Interval History
-
Date of Service: March 24, 2024
pt ready for d/c
Objective Data
-
Labs:
Laboratory Results
03/24/24
03:58
WBC 11.6 H
Hgb 11.6 L
Hct 34.3 L
Plt Count 273
Sodium 136
Potassium 3.6
Chloride 97 L
Carbon Dioxide 29
BUN 30 H
Creatinine 1.5 H
Glucose 135 H
Calcium 9.0
Vital Signs:
max temp for 24 hours
03/23/24
19:08
Temp 99.1 F
Vital Signs
Temp Pulse Resp BP Pulse Ox
98.1 F 90 20 137/74 93
03/24/24 08:01 03/24/24 08:15 03/24/24 08:01 03/24/24 08:03 03/24/24 08:03
I&O
03/23/24 03/24/24 03/25/24
06:59 06:59 06:59
Intake Total 1060 / 1060 480 / 480
Output Total 3750 / 3750 2950 / 2950
Balance -2690 / -2690 -2470 / -2470
Review of Systems
-
All other systems: Reviewed and negative
Physical Exam
-
General: Well Developed, Well Nourished and No Apparent Distress
HEENT: Normocephalic and Atraumatic
Respiratory: Clear to Auscultation; Negative Wheezes or Rhonchi
Cardiac: Regular Rhythm and S1/S2; Negative Murmur
GI: Soft, Nontender, Nondistended and Normal Bowel Sounds
Musculoskeletal: No Clubbing, No Cyanosis and No Edema
Neuro: Awake
Psych: Calm
[2024-03-24] MEDS: LIPITOR 40 MG PO (09:38)
[2024-03-24] MEDS: PROTONIX 40 MG PO (09:38)
[2024-03-24] MEDS: ELIQUIS 5 MG PO (09:38)
[2024-03-24] MEDS: NOVOLOG FLEXPEN-LOW RESISTANCE SC (09:38)
[2024-03-24] MEDS: LASIX 40 MG PO (09:38)
[2024-03-24] MEDS: ASPIR LOW (ENTERIC COATED) 81 MG PO (09:39)
[2024-03-24] MEDS: LASIX IV (09:51)
--- NOTE | 2024-03-24 10:28 | W.PN.CD ---
Addendum entered and electronically signed by Roly Chaves MD 03/24/24 11:10:
I would call the EKG read as atrial flutter as AFib. I do not think flutter is a correct diagnosis.
Original Note:
Today's Communication / Plan
-
Home today on furosemide and SGLT2-i if copay OK
May add Aldactone later
I think that ablation is a good choice, I reviewed with him
F/u arranged
Impression / Plan
-
HFpEF, acute: improved
-weight down and breathing and edema better, still with rales to bases to assessment.
-Move to PO lasix, ok for home
- Start SGLT2-I if copay ok
- FCI rhythm control will be pursued for now
Paroxysmal atrial fibrillation:
-now back in SR
-Tikosyn caused prolonged QTc and is discontinued
- Home in sinus on BB
- Will meet with Dr. Murphy as outpatient to learn more about ablation option
Coronary artery disease, nonobstructive at remote cath and favor nuc stress test recently
-Circumflex 40% proximal stenosis, RCA 30-40% mid stenosis
-Increased dose of atorvastatin for LDL of 80
Hypertension, follow BP with changes in medical therapy
NSVT, continue beta-heike
Mixed hyperlipidemia, on atorvastatin
GERD
Chronic kidney disease, creatinine 1.27 (12/2023)
Type 2 diabetes mellitus, most recent HgbA1c 7.2% (12/2023)
Former smoker, continued cessation recommended
Subjective:
Eager for home
Physical Exam
Vital Signs/Labs
Vital Signs
Temp Pulse Resp BP Pulse Ox
98.1 F 90 20 137/74 93
03/24/24 08:01 03/24/24 08:15 03/24/24 08:01 03/24/24 08:03 03/24/24 09:34
03/23/24 03/24/24 03/25/24
06:59 06:59 06:59
Actual Weight 90.4 kg 88.6 kg
03/24/24 03:58
03/24/24 03:58
Magnesium 2.0 mg/dl (1.6-2.3) 03/23/24 03:36
Triglycerides 117 mg/dl (10-149) 03/22/24 04:37
LDL Cholesterol, Calc 79 mg/dl 03/22/24 04:37
VLDL Cholesterol, Calc 23 mg/dl (0-30) 03/22/24 04:37
HDL Cholesterol 43 mg/dl 03/22/24 04:37
03/21/24
11:50
Mux-F-Uiozqwyjmgd Pept 2620
LAB Results
03/21/24 03/21/24
11:50 16:10
Troponin I 0.019 0.021
Physical Exam
Constitutional: No acute distress
EENT: Anicteric
Cardiovascular: Rhythm & rate is regular and Pedal edema is absent
Respiratory: Respiratory effort normal and Lungs clear to auscul.
GI: Soft and Distention absent
Neuro/Psych: Alert
Data Reviewed
-
Date of Service: March 24, 2024
--- NOTE | 2024-03-24 11:03 | PN.CDI ---
CDI
- -
CDI:
Physician Documentation Request
Admit Date: 03/21/24 16:44
Dear Doctor Anastacio,
The diagnosis of Atrial flutter was included in the signed EKG 03/21 2245
Please indicate in your progress notes if you are in agreement that the above diagnosis is valid for this patient:
____ - Atrial flutter is a valid diagnosis (Please include typical or atypical)
____ - Atrial flutter is not a valid diagnosis for this patient
____ - Other
Use of terms such as suspected, likely, concern for, or probable are acceptable for a diagnosis that is being evaluated, monitored or treated as if it exists and can be coded in the inpatient setting, when documented at the time of discharge.
Thank you,
Jackie Berumen RN, BSN
CDI Specialist
tiger text
Please use your independent medical judgment in providing your response.
[2024-03-24 11:08] VITALS: BP 138/76
--- NOTE | 2024-03-24 12:21 | CM ---
priced razia and grayson with pts insur co, his copays are $47/month for either. dr medrano aware, pt is ok with the [facility]
--- NOTE | 2024-03-24 12:39 | PTCARENOTE ---
Pt seen by Bozena and Anastacio. Telemetry and IV device removed. Discharge instructions reviewed with pt and his regarding CHF guidelines, medications and their possible side effects, reporting cares and concerns and follow up appt's. Very
good understanding verbalized. Pt escorted out via wheelchair and discharged to home.
--- NOTE | 2024-03-24 17:44 | W.DCSUMMARY ---
Discharge Summary
Discharge Data
Date of Admission: 03/21/24
Date of Discharge: 03/24/24
-
Pending Results: No
Hospital Course
Primary care physician : Krish Kimble
Principal Discharge diagnosis : Shortness of breath due to new onset diastolic congestive heart failure, paroxysmal atrial fibrillation
Chronic Discharge diagnosis : Chronic kidney disease stage IIIa, anemia of chronic disease, essential hypertension, coronary artery disease, hyperlipidemia, type 2 diabetes, gastroesophageal reflux disease, benign prostatic hyperplasia
Hospital Course : Patient was an 83-year-old male with multiple chronic medical problems who stated that he was short of breath which was worse with activity. He also described midsternum chest heaviness for at least 2 days prior to admission.
Patient was also sleeping more than usual. He had worsening lower extremity edema. He had weight gain of approximately 10 pounds in the last month. Workup in the emergency department found him to have an elevated proBNP of 2620 and chest x-ray
with mild cardiomegaly, small bilateral pleural effusions and mild pulmonary vascular congestion. Patient was admitted.
Problem #1: Shortness of breath due to new onset diastolic congestive heart failure. Patient was admitted and was seen in consultation by cardiology. Echocardiogram was done January 21, 2024 which showed ejection fraction of 60 to 65% with moderate
pulmonary hypertension and estimated elevated PA systolic pressures. Echocardiogram was not repeated this admission. Patient was started on IV Lasix for diuresis. Weights improved from 101.7 kg on admission down to 88.6 kg by the day of
discharge. Goal-directed medical therapy was provided and patient was discharged on Jardiance after case management priced drug. He did not come in on any diuretics and will be discharged on 40 mg p.o. daily of Lasix.
Problem #2: Paroxysmal atrial fibrillation. Patient's EKG showed atrial fibrillation. Patient was continued on Eliquis and metoprolol was continued. Tikosyn was started but the patient had a prolonged QT of greater than 500 and Tikosyn needed to
be stopped. There was some discussion of needing a ablation and will be discussed as an outpatient with his financial services director. For now he will be discharged on metoprolol.
Problem #3: All other medical issues. These include Chronic kidney disease stage IIIa, anemia of chronic disease, essential hypertension, coronary artery disease, hyperlipidemia, type 2 diabetes, gastroesophageal reflux disease, benign prostatic
hyperplasia. These medical issues were stable during his hospitalization. Medications were continued as able.
Patient is stable for discharge home at this time. If there are any questions regarding this dictation or his hospital stay, please not hesitate to call. Our office number is [phone].
Discharge Plan
-
Patient Disposition: Home (Routine Discharge)
Discharge Diagnosis/Procedures: New onset diastolic congestive heart failure with exacerbation, paroxysmal atrial fibrillation, anemia of chronic disease, essential hypertension, coronary artery disease, essential hypertension, hyperlipidemia, type
2 diabetes mellitus, gastroesophageal reflux disease, history of benign prostatic hyperplasia
Condition: Good
Diet: As tolerated and 2 Gram Sodium
Activity: As tolerated
Driving Restrictions: As prior to admission
Bathing Restrictions: None
Specialty Instructions: Weigh Daily- Call MD for wt gain/loss 3 lbs overnight/5 lbs in 1 week
Instructions: *CBC Heart Failure Instructions
Referrals:
Krish Kimble MD [Family Provider] - in less than 1 week
Viktoria Baugh CRNP [Specified Professional Personl] - 03/31/24 10:00 am
Prescriptions:
New
amlodipine 5 mg Tablet
5 mg PO QPM Qty: 30 0RF
furosemide 40 mg Tablet
40 mg PO DAILY Qty: 30 0RF
Jardiance 10 mg tablet
10 mg PO DAILY Qty: 30 0RF
Continued
aspirin 81 MG tablet,delayed release (DR/EC)
81 mg PO DAILY
metoprolol succinate 50 MG tablet extended release 24 hr
50 mg PO HS
lisinopril 20 MG tablet
40 mg PO HS
Hold Instructions: Resume on 08/08/22.
tamsulosin 0.4 mg Capsule
0.4 mg PO HS
pantoprazole 40 MG tablet,delayed release (DR/EC)
40 mg PO DAILY
Eliquis 5 mg Tablet
5 mg PO BID
Changed
atorvastatin 40 mg Tablet
40 mg PO HS Qty: 0 0RF
Discontinued
amlodipine 5 mg Tablet
2.5 mg PO HS
repaglinide 0.5 mg Tablet
0.5 mg PO BID
metformin 1,000 mg Tablet
1,000 mg PO QPM
No Action
metformin 1,000 mg Tablet
1,000 mg PO BIDWMEAL
repaglinide 0.5 mg Tablet
0.5 mg PO BID
Discharge Orders:
Discharge Patient (As Directed); Ordered 03/24/24
Ordered By: Aaliyah Walls
Care Plan Goals
Care Plan Goals:
Problem: Readiness for enhanced knowledge related to diagnosis and treatment plan
Goal: Understand your diagnosis and treatment plan needs, including medications if applicable.
Instructions: Know your diagnosis, underlying causes and treatment plan options, including medications if applicable. Consult with your health care team to learn about your diagnosis and treatment plan, including medications if applicable.
Discharge Date and Time
Discharge Date/Time: 03/24/24 12:25
Print Language: ALBANIAN
== END 2024-03-24 12:25 | disposition home or self-care (01) | DRG 291 ==
LOC: IVU 16:44
PROVIDERS: Emergency Medicine; Nurse Practitioner Gerontology; Registered Nurse; ADMITTING PHYSICIAN Student in an Organized Health Care Education/Training Program; ATTENDING PHYSICIAN Internal Medicine; CONSULT PHYSICIAN Internal Medicine Cardiovascular Disease; EMERGENCY PHYSICIAN Emergency Medicine; FAMILY PHYSICIAN Family Medicine
PROC: 3E0DXRZ Introduction of Antiarrhythmic into Mouth and Pharynx, External Approach (ICD-10-PCS; 2024-03-21)
DX: I13.0 Hypertensive heart and chronic kidney disease with heart failure and stage 1 through stage 4 chronic kidney disease, or unspecified chronic kidney disease (principal); I50.31 Acute diastolic (congestive) heart failure; I47.20 Ventricular tachycardia, unspecified; N18.31 Chronic kidney disease, stage 3a; E11.22 Type 2 diabetes mellitus with diabetic chronic kidney disease; I48.0 Paroxysmal atrial fibrillation; D50.9 Iron deficiency anemia, unspecified; M10.9 Gout, unspecified; E78.00 Pure hypercholesterolemia, unspecified; D63.8 Anemia in other chronic diseases classified elsewhere; E78.2 Mixed hyperlipidemia; I25.10 Atherosclerotic heart disease of native coronary artery without angina pectoris; N40.0 Benign prostatic hyperplasia without lower urinary tract symptoms; K21.00 Gastro-esophageal reflux disease with esophagitis, without bleeding; Z79.82 Long term (current) use of aspirin; Z79.84 Long term (current) use of oral hypoglycemic drugs; Z79.01 Long term (current) use of anticoagulants; Z87.891 Personal history of nicotine dependence; Z85.820 Personal history of malignant melanoma of skin
CPT/HCPCS: 71046; 80048; 80053; 80061; 82248; 82962; 83036; 83735; 83880; 84443; 84484; 85025; 85027; 93005; 97162; 99285

== ENCOUNTER → 2024-04-03 13:27 | Outpatient (REF) | payer OTHER, SELFPAY | LOC: RAD 13:27 | PROVIDERS: ATTENDING PHYSICIAN Family Medicine | DX: R51.9 Headache, unspecified (principal); Z68.26 Body mass index [BMI] 26.0-26.9, adult; I25.118 Atherosclerotic heart disease of native coronary artery with other forms of angina pectoris; I65.23 Occlusion and stenosis of bilateral carotid arteries | CPT/HCPCS: 93880 ==

== ENCOUNTER → 2024-05-09 13:25 | Outpatient (REF) | payer OTHER, SELFPAY | LOC: HWRAD 13:25 | PROVIDERS: ATTENDING PHYSICIAN Internal Medicine Cardiovascular Disease; FAMILY PHYSICIAN Family Medicine | DX: I50.32 Chronic diastolic (congestive) heart failure (principal) | CPT/HCPCS: 76770 ==

== ENCOUNTER 2024-07-14 09:00 | Outpatient (RCR) | payer OTHER, SELFPAY ==
[2024-07-06] MEDS: FERAHEME 117 MG IV (10:28)
[2024-07-06 10:35] VITALS: BP 129/56
[2024-07-06 11:05] VITALS: BP 123/58
[2024-07-06 11:35] VITALS: BP 122/49
[2024-07-14 09:30] VITALS: BP 122/64
[2024-07-14] MEDS: FERAHEME 117 MG IV (10:03)
[2024-07-14 10:25] VITALS: BP 150/69
== END 2024-07-31 23:59 | disposition home or self-care (01) ==
LOC: OID 09:00
PROVIDERS: ATTENDING PHYSICIAN Internal Medicine; FAMILY PHYSICIAN Family Medicine
DX: D50.0 Iron deficiency anemia secondary to blood loss (chronic) (principal); N17.9 Acute kidney failure, unspecified; N18.32 Chronic kidney disease, stage 3b; R80.9 Proteinuria, unspecified
CPT/HCPCS: 96365; Q0138

== ENCOUNTER 2024-08-03 05:54 | Day surgery (SDC) | payer OTHER, SELFPAY ==
[2024-07-31 12:40] VITALS: BMI 25.5
[2024-07-31 13:06] LABS: % Basophils 0.8 % (0-2); % Eosinophils 2.5 % (0-6); % Immature Granulocytes 0.4 % (0-0.5); % Monocytes 8.1 % (1.7-9.3); % Neutrophils 77.2 % (42.2-75.2); Absolute Basophils 0.1 10^3/uL (0-0.2); Absolute Eosinophils 0.2 10^3/uL (0-0.7); Absolute Lymphocytes 0.8 10^3/uL (1.2-3.4); Absolute Monocytes 0.6 10^3/uL (0.1-0.6); Absolute Neutrophils 5.5 10^3/uL (1.4-6.5); Hematocrit 36.4 % (39.0-52.0); Mean Corpuscular Volume 84.8 fL (80.0-94.0); Mean Platelet Volume 9.5 fL (7.4-10.4); Nucleated Red Blood Cells % 0 % (-); Platelet Count 251 10^3/uL (130-400); Red Blood Cell Count 4.29 10^6/uL (4.70-6.10); Red Cell Dist. Width 17.1 % (11.5-14.5); White Blood Cell Count 7.1 10^3/uL (4.8-10.8)
[2024-07-31 13:21] LABS: ALT (SGPT) 35 U/L (0-50); AST (SGOT) 38 U/L (17-59); Albumin 4.3 g/dl (3.5-5.0); Alkaline Phosphatase 190 U/L (38-126); Blood Urea Nitrogen 26 mg/dl (9-20); Calcium 9.8 mg/dl (8.4-10.2); Carbon Dioxide 25 mmol/L (22-30); Chloride 104 mmol/L (98-107); Estimated Creatinine Clearance 44 ml/min; Glucose 113 mg/dl (70-99); Potassium 4.4 mmol/L (3.5-5.1); Sodium 143 mmol/L (135-145); Total Bilirubin 1.4 mg/dl (0.2-1.3); Total Protein 7.3 g/dl (6.3-8.2); eGFR 49.25
[2024-08-03] VITALS (10 sets, daily range): BP systolic 118–153; BP diastolic 64–94
[2024-08-03 06:44] LABS: Glucose - Point of Care 110 mg/dl (70-99)
[2024-08-03 08:44] LABS: ACT-LR - POC 284 Seconds (116-155)
[2024-08-03 08:52] LABS: Glucose - Point of Care 126 mg/dl (70-99)
[2024-08-03 09:06] LABS: ACT-LR - POC 290 Seconds (116-155)
[2024-08-03 09:31] LABS: ACT-LR - POC 334 Seconds (116-155)
[2024-08-03 09:50] LABS: ACT-LR - POC 345 Seconds (116-155)
--- NOTE | 2024-08-03 10:36 | ITS.CL.ABL ---
Telephoto Engineer - Ablation
Ablation
Procedure Report:
AFIB ablation:
Mr. Maldonado is a very pleasant 84 yr old gentleman with symptomatic persistent AF on Metoprolol presented today to the EP lab for atrial fibrillation ablation.
Date of the Procedure:
08/03/2024
Indications:
Persistent atrial fibrillation
Pre-Operative Diagnosis:
Persistent atrial fibrillation
Post-Operative Diagnosis:
Persistent atrial fibrillation
Procedure Performed:
Atrial fibrillation ablation with Pulsed-Field approach for pulmonary vein isolation
Performing Physician:
Angelique Murphy MD
Assistants:
EP staff
Anesthesia:
See anesthesia records
Detailed Description of the Procedure:
Written informed consent was obtained from the patient after a full explanation of the risks and benefits of the procedure including the risks of sedation and anesthesia.
The patient was brought to the electrophysiology laboratory in stable condition in fasting state. Continuous electrocardiographic and hemodynamic monitoring was initiated.
The initial rhythm was atrial fibrillation.
The procedure site was meticulously prepared with surgical scrub and allowed to dry with no pooling. Sterile draping was applied to cover the procedure site. The image intensifier was draped with sterile bag and positioned over the patient. After
infusion of local anesthetic, vascular access was obtained under ultrasound guidance and sheaths were placed over guide wire as detailed below.
Sheath and Catheter Placement:
The following catheters / sheaths were placed
Sheaths:
��������� 15Fr steerable sheath (FlexCath Cross�, [employer]) in right femoral vein in right femoral vein
��������� 9Fr in right femoral vein
Catheters:
��������� JEANETTE HD Grid mapping catheter � at locations of RA, LA
��������� PulseSelect� PFA catheter
��������� ICE catheter -AcuNav - at locations of RA, SVC, and RV.
Intracardiac ECHO:
An 8-[place] AcuNav intracardiac ECHO (ICE) probe was advanced through the 9-[place] sheath in the right femoral vein into the right atrium under fluoroscopic and ICE ultrasound image guidance and a baseline ECHO study was performed. The left atrial
size was dilated. There was moderate tricuspid regurgitation. The aortic valve was grossly normal. There was normal left ventricular systolic functions. There is no pericardial effusion. All the four veins were identified and has flow identified.
During the procedure, ICE was used for monitoring of complications, guidance of trans-septal puncture, monitor the catheter position and tracking ablation lesions. No change in the pericardial space noted throughout the procedure.
Trans-septal Puncture:
Heparin was initiated and infused to maintain appropriate ACT. A J-tipped guidewire was advanced through the 8-[place] sheath in the right femoral vein into the superior vena cava under fluoroscopic and ICE guidance. The 8-[place] sheath was exchanged
for a FlexCath Cross sheath which was advanced into the superior vena cava. An AcReInnervate transseptal access system was utilized to perform the trans-septal puncture. The apparatus was withdrawn until it was in contact with the fossa ovalis. The
position was adjusted based on fluoroscopy and ultrasound images from ICE. Under fluoroscopic, hemodynamic and ICE ultrasound guidance, left atrium was cannulated by advancing the needle. Once atrial septum was cannulated, the needle was pulled back
and a guide wire was advanced through the needle into the left atrium. The guide wire was advanced into the left superior pulmonary vein. Both the sheath and the dilator was advanced into the left atrium. The dilator with the needle was withdrawn.
Blood was aspirated from the FlexCath cross sheath and arterial blood confirmed. The sheath was flushed. Saline injection noted into the left atrium on ICE. The mapping catheter was advanced in the Agilis sheath into the left pulmonary vein. Left
atrial pressure was measured.
3D Electroanatomic Mapping:
Using the HD Grid catheter advanced through sheath into the left atrium, an electroanatomic map (EAM) of the left atrium was created using [employer] mapping system. The map was used for localization of catheter position and tacking of ablation
lesions. The EAM of the left atrium showed 5 pulmonary veins with two left sided and two right sided veins along with a 5th vein in the posterior wall all electrically connected to the body the LA. There was extensive areas of low voltage noted in
the left atrium with minimal electrical activity in the posterior wall in atrial fibrillation. But once mapped in sinus rhythm, the posterior and anterior nava had some healthy areas with patchy scar all over the LA.
The LA was dilated in size.
Following the EAM, preparation were made for ablation.
Ablation:
Ablation # 1: Pulmonary vein Isolation:
Glycopyrrolate 0.2 mg was given prior to the placement of ablation. Using [employer]� pulsed field ablation system, pulmonary vein isolation was achieved. First the ablation catheter was placed in the LSPV and ostial ablation lesions were performed
in a counter clock cartagena approach all around the PV ostium circumferentially. Then the catheter was placed on the antral location and multiple ablation lesions were placed circumferentially on the antrum of the vein.
In the similar fashion, the LIPV were isolated.
Then the catheter was moved to posterior wall and right sided veins. The ostial and antral ablations were placed as noted above to the RSPV and RIPV.
Ablation # 2: Posterior wall isolation:
Using the pulsed field ablation catheter, the catheter was placed on the posterior wall and moved around the posterior wall to have adequate contact and ablations were placed isolating the posterior wall.
Cardioversion:
Once the PV isolation was achieved, decision was made to proceed with cardioversion. A 200 J biphasic shock was applied on the amadou posterior Zoll patches and sinus rhythm was achieved. No significant pause noted.
Post ablation Electroanatomic mapping:
Once ablation was completed, the EAM of the LA was done again in sinus rhythm with excellent demarcation of LA myocardium and isolated antral tissue. There was dissociated signals were noted in the veins as well.
EPS and Confirmation of the PVI and bidirectional block:
Following achievement of entrance block at the pulmonary veins, pacing from the HD catheter in each of the four veins at 10 milliamps for 2 milliseconds showed entrance and exit block. All PVI were rechecked at the end of the case and remained
isolated with dissociated and local capture with pacing. Entrance and exit block were demonstrated in all veins.
Procedure End
ICE study was done again that showed no epicardial accumulation. No complications noted.
Following the completion of the EP study, catheters were removed. Protamine 40 mg was given at the end of the procedure and ACT was checked repeatedly. The sheaths were removed and hemostasis achieved with VASCADE manual compression after acceptable
ACT is achieved.
Left atrial Pressure:
Pre-Procedure: Mean LA pressure was 12mmHg
Post-Procedure: Mean LA pressure was 16mmHg
Post-Procedure: Mean LR pressure was 10mmHg
Estimated Blood loss:
<10 cc
Specimens Removed:
None.
Implants / Devices:
None
Urine output:
None
Packs / Drains/ Tubes:
None
Instrument / Sponge Count Correct:
Yes
Complications of the Procedure:
None
Condition of Patient at Time of Transfer:
Hemodynamically stable with no neurological or vascular compromise.
Summary:
Successful atrial fibrillation ablation with Pulsed Field approach for pulmonary vein isolation and posterior wall isolation
Figures from the Procedure:
Figure 1: The electroanatomic mapping (EAM) of the left atrium with bipolar voltage (purple indicates normal electrical activity with gomez as no myocardial muscle electric activity indicating a line of block or scar.
[2024-08-03 11:09] LABS: Glucose - Point of Care 154 mg/dl (70-99)
[2024-08-03] MEDS: FLOMAX 0.4 MG PO (11:39)
--- NOTE | 2024-08-03 13:16 | W.PN.UPDATE ---
Update Note
Progress Note Update
84 yo WM s/p PVI (same day). He denies cp, sob, darrick diet, voiding, amb w/o dizziness, EKG SR 1deg AVB with frequent PAC's, R fem site c/d/i no HT, VASCADE closure. He will continue OAC Eliquis tonight. He will continue metoprolol. Activity
restrictions reviewed. He will f/u [facility] Kimi in 2 weeks. He will have EKG at that visit as he is asymptomatic with Afib. He is for d/c home after 1pm.
== END 2024-08-03 12:56 | disposition home or self-care (01) ==
LOC: CATH 05:54
PROVIDERS: ATTENDING PHYSICIAN Internal Medicine Cardiovascular Disease; FAMILY PHYSICIAN Family Medicine; OTHER PHYSICIAN Internal Medicine Cardiovascular Disease
DX: I48.19 Other persistent atrial fibrillation (principal); R06.02 Shortness of breath; I47.20 Ventricular tachycardia, unspecified; I13.0 Hypertensive heart and chronic kidney disease with heart failure and stage 1 through stage 4 chronic kidney disease, or unspecified chronic kidney disease; I50.32 Chronic diastolic (congestive) heart failure; N18.30 Chronic kidney disease, stage 3 unspecified; E11.22 Type 2 diabetes mellitus with diabetic chronic kidney disease; I25.10 Atherosclerotic heart disease of native coronary artery without angina pectoris; E78.5 Hyperlipidemia, unspecified; I27.20 Pulmonary hypertension, unspecified; K21.9 Gastro-esophageal reflux disease without esophagitis; N40.0 Benign prostatic hyperplasia without lower urinary tract symptoms; Z87.891 Personal history of nicotine dependence; Z79.01 Long term (current) use of anticoagulants; Z79.84 Long term (current) use of oral hypoglycemic drugs
CPT/HCPCS: C1732; C1733; C1769; C1894; C1892; C1759; 36415; 80053; 82962; 85025; 85347; 86850; 86900; 86901; 93005; 93656; 93657; C1760

== ENCOUNTER → 2024-11-29 07:11 | Outpatient (REF) | payer OTHER, SELFPAY | LOC: RAD 07:11 | PROVIDERS: ATTENDING PHYSICIAN Family Medicine | DX: R10.31 Right lower quadrant pain (principal) | CPT/HCPCS: 74177; Q9967 ==

== ENCOUNTER → 2024-12-13 07:52 | Outpatient (REF) | payer OTHER, SELFPAY | LOC: RAD 07:52 | PROVIDERS: ATTENDING PHYSICIAN Family Medicine; FAMILY PHYSICIAN Family Medicine | DX: J90 Pleural effusion, not elsewhere classified (principal); J94.8 Other specified pleural conditions; Z77.090 Contact with and (suspected) exposure to asbestos; J92.9 Pleural plaque without asbestos | CPT/HCPCS: 71260; Q9967 ==

== ENCOUNTER → 2024-12-28 09:18 | Outpatient (REF) | payer OTHER, SELFPAY | LOC: HWRAD 09:18 | PROVIDERS: ATTENDING PHYSICIAN Family Medicine | DX: R93.89 Abnormal findings on diagnostic imaging of other specified body structures (principal) | CPT/HCPCS: 76536 ==

== ENCOUNTER 2025-06-22 06:11 | Day surgery (SDC) | payer OTHER, SELFPAY ==
[2025-06-15 09:26] LABS: Hematocrit 38.9 % (39.0-52.0); Hemoglobin 13.1 g/dL (13.0-18.0); Mean Corp Hgb Conc. 33.7 g/dL (33.0-37.0); Mean Corpuscular Volume 88.6 fL (80.0-94.0); Platelet Count 189 10^3/uL (130-400); Red Cell Dist. Width 13.5 % (11.5-14.5)
[2025-06-15 09:50] LABS: Blood Urea Nitrogen 28 mg/dl (9-20); Calcium 9.9 mg/dl (8.4-10.2); Carbon Dioxide 27 mmol/L (22-30); Chloride 104 mmol/L (98-107); Glucose 137 mg/dl (70-99); Potassium 4.5 mmol/L (3.5-5.1); Sodium 140 mmol/L (135-145); eGFR 45.34
[2025-06-15 13:55] VITALS: BMI 24.5
--- NOTE | 2025-06-15 16:20 | PTCARENOTE ---
Abnormal ECG on 06/15/2025, Dr. Dotson notified, no further orders at this time.
[2025-06-22] VITALS (8 sets, daily range): BP systolic 124–156; BP diastolic 63–98; BMI 24.5
[2025-06-22 12:33] LABS: Glucose - Point of Care 145 mg/dl (70-99)
[2025-06-22] MEDS: NORMOSOL-R/PLASMALYTE-A 1000 IV (12:49)
[2025-06-22 14:49] LABS: Glucose - Point of Care 115 mg/dl (70-99)
== END 2025-06-22 15:50 | disposition home or self-care (01) ==
LOC: SDS 06:11
PROVIDERS: ATTENDING PHYSICIAN Surgery; FAMILY PHYSICIAN Family Medicine
DX: N35.919 Unspecified urethral stricture, male, unspecified site (principal); R33.8 Other retention of urine; Z98.890 Other specified postprocedural states; Z87.438 Personal history of other diseases of male genital organs
CPT/HCPCS: 52281; 36415; 80048; 82962; 85027; 93005